=== PATIENT | female | born 1960 | race Caucasian/White ===

== ENCOUNTER 2024-09-15 09:48 | Outpatient (AMB) | payer BC, SELFPAY ==
--- NOTE | 2024-09-15 10:02 | A.OFFPC_ITS ---
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 Intake Note: patient is scheduled for BUILDING MAINTENANCE TECHNICIAN visit to establish care with pcp Autom[employer] Professional Required: No Allergies No Known Allergies Allergy (Verified 09/15/24 10:04) Medication List - Last Reconciled 09/15/24 by Jones Becker MD ashwagandha extract mg PO atorvastatin 10 mg PO DAILY biotin 1 mg PO DAILY cholecalciferol (vitamin D3) 125 mcg PO DAILY ferrous sulfate 65 mg PO DAILY folic acid 1 mg PO DAILY methotrexate sodium 15 mg PO QWEEK db-oa-mygmqhb-biotin-vit D3-FA 200-450-400 mg-mcg-unit tabs PO mankcqtl-ahykrq-lwany pepper 125 mg-6 mg- 50 mcg tabs PO Tobacco use date assessed: 09/15/24 Fall risk assessment: No Falls in past year Last assessed Fall Risk: 09/15/24 Dental Screening Dental Screen Date: 09/15/24 Did you have a dental visit in the last 12 months?: Yes Did you have a dental problem in the last 6 months where you did not have access to dental care?: No Was dental information given to patient?: Patient has dentist HPI BUILDING MAINTENANCE TECHNICIAN- PE request HPI Details New Patient? ?? Prior PCP:? Bushra Kaufman Last office visit/CPE:? 1 year Acute issue(s):? [facility]. Dru JUAREZ. ?? PMHx:? RA and OA. ? Lipid elevation, Hyperkalemia SurgHx:?Gastric Bypass, Lumber Surgery, FHx:? Mom: CAD, OR, DM. Dad: CAD, OR, Skin CA. Sister: CAD & Stent. SocHx:? Quit Cigs 20 yrs ago. EToH None. No drugs HPI Comments History of Present Illness Details Documentation assistance for Jones Becker MD, was provided by Girish Hendrix,? [employer] on 09/15/2024 at 10:45 AM EST. I, Dr. Becker, have read, observed, and verified documentation. ?? [facility] Medical History (Updated 09/15/24 @ 10:44 by Girish Hendrix) Osteoporosis Arthritis Sinusitis Surgical History (Updated 09/15/24 @ 10:22 by CURRY Abbasi) H/O gastric bypass H/O lumbar discectomy History of tonsillectomy Hx of appendectomy Family History (Updated 09/15/24 @ 10:28 by CURRY Abbasi) Mother High blood pressure High cholesterol Diabetes Cardiovascular disease Father High blood pressure High cholesterol Cardiovascular disease Skin cancer Sister High blood pressure High cholesterol Cardiovascular disease Skin cancer Social History Housing: House Patient Tobacco Use Status: Former Tobacco user e-Cigarette/Vaping Use: Never Used Second Hand Smoke Exposure: No service: No Current occupational status: employed Current occupation: paraprofessional Current occupational exposures/hazards: No Cognitive needs: No Hearing needs: No Vision needs: Yes Questionnaire PHQ-9 Over the last 2 weeks, how often have you been bothered by any of the following problems? 1. Little interest or pleasure in doing things: not at all 2. Feeling down, depressed, or hopeless: not at all 3. Trouble falling or staying asleep, or sleeping too much: several days 4. Feeling tired or having little energy: not at all 5. Poor appetite or overeating: more than half the days 6. Feeling bad about yourself - or that you are a failure or have let yourself or your family down: not at all 7. Trouble concentrating on things, such as reading the newspaper or watching television: not at all 8. Moving or speaking so slowly that other people could have noticed. Or the opposite - being so fidgety or restless that you have been moving around a lot more than usual: not at all 9. Thoughts that you would be better off or of hurting yourself in some way: not at all Total score: 3 Depression Screening Interpretation: Negative Depression Screening Done: Yes 13491 - PHQ-9 Billing: Yes Source: Developed by Drs. Nathan Duncan, Yuridia Byrd, Jose [place] Wharton and colleagues, with an educational linh from [employer]. Thrive Questionnaire Date Thrive assessed: 09/15/24 I am a: Patient What is your living situation today?: I have a steady place to live Within the past 12 months, did the food you bought not last and you didn't have the money to get more?: Never true Within the past 12 months, did you worry whether your food would run out before you got money to buy more?: Never true Do you have trouble paying for medicines?: No Do you have trouble getting transportation to medical appointments?: No Do you have trouble paying your heating and electricity bill?: No Do you have trouble taking care of your child, family member or friend?: No Do you have trouble with day-to-day activities such as bathing, preparing meals, shopping, managing finances, etc.?: No Are you currently unemployed and looking for a job?: No Are you interested in more education?: No Please select the resources that you would like help with: None Currently or been in a relationship where the following occur: No concerns reported THRIVE Score: 0 AUDIT C Alcohol Use Questionnaire (AUDIT-C) 1. How often do you have a drink containing alcohol?: Never Total Score: 0 Score Reviewed/Action Taken: Yes NICOLE-7 AMB Questionnaire NICOLE-7 Date NICOLE - 7 assessed: 09/15/24 Feeling nervous, anxious, or on edge: 1 = Several days Not being able to stop or control worryin = Not at all Worrying too much about different things: 0 = Not at all Trouble relaxin = Several days Being so restless that it is hard to sit still: 0 = Not at all Becoming easily annoyed or irritable: 1 = Several days Feeling afraid as if something awful might happen: 1 = Several days Total NICOLE-7 score (0-4 normal; 5-9 mild; 10-14 moderate; 15-21 severe): 4 Source: Developed by Drs. Nathan Duncan, Yuridia Byrd, Jose [place] Wharton and colleagues, with an educational linh from [employer]. NICOLE-7 Assessment Billing NICOLE-7 Assessment Tool: NICOLE-7 Assessment 36318 Review of Systems Const Denies chills, Denies fatigue, Denies fever(s), Denies headache(s) and Denies weakness ENT Denies dizziness and Denies headache(s) Card Denies chest pain, Denies lightheadedness, Denies dyspnea and Denies other (Palpitations) Resp Denies cough, Denies dyspnea, Denies wheezing and Denies other ( shortness of breath) Musc Denies numbness and Denies tingling Neuro Denies dizziness, Denies headache(s), Denies numbness, Denies tingling, Denies paresthesias and Denies weakness Psych Denies anxiety and Denies depression Endo Denies fatigue Aller/Immun Denies wheezing Physical exam (Primary Care) Tobacco/Smoking Status: Tobacco use Status Tobacco use date assessed 09/15/24 09/15/24 10:19 Patient Tobacco Use Status Former Tobacco user 09/15/24 10:19 e-Cigarette/Vaping Use Never Used 09/15/24 10:19 PHQ-9: PHQ-9 Score PHQ-9: Total score 3 09/15/24 10:19 Depression Screening Interpretation: Negative Currently or been in a relationship where the following occur: No concerns reported Const General: no acute distress and well developed Nutritional Appearance: well nourished Orientation/consciousness: patient oriented x3 HENMT Head: Yes normocephalic and Yes atraumatic Eyes General: appearance normal, both eyes and all related structures Pupils: Equal, round and reactive pupils present EOM: EOMs intact bilaterally Resp Effort & Inspection: normal respiratory effort Auscultation: clear to auscultation bilaterally Cardio Rate: regular rate Rhythm: regular rhythm Heart sounds: S1 normal heart sound present, S2 normal heart sound present, no gallops, no murmurs and no rubs Neuro General: patient oriented x3 and gait normal Cranial nerves: Yes Equal, round and reactive pupils present Psych Affect: normal affect Coding Level of Care Code New Pt Level 4 (64334) Diagnoses Hyperlipidemia E78.5 Rheumatoid arthritis M06.9 Osteoarthritis M19.90 Obesity E66.9 Family history of coronary artery disease Z82.49 Laboratory exam ordered as part of routine general medical examination Z00.00 Additional Codes NICOLE-7 Assessment Billing - NICOLE-7 Assessment Tool: NICOLE-7 Assessment 06013 ([id number]) PHQ-9 - 19825 - PHQ-9 Billing: Yes ([id number]) Assessment & Plan Assessment & Plan (1) Hyperlipidemia: Code(s): E78.5 - Hyperlipidemia, unspecified Category: Medical Plan: Patient?was?put?on?atorvastatin?but?has?not?been?taking?this?and?questions?the?n eed?for She?does?have?a?very?strong?family?history?of?coronary?artery?disease?in?mom,?da d?and?sister Will?recheck?lipids?and?discuss?with?patient?in?light?of?this (2) Rheumatoid arthritis: Code(s): M06.9 - Rheumatoid arthritis, unspecified Category: Medical Plan: Rheumatoid?arthritis?and?some?osteoarthritis Followed?by?rheumatology?in?[place]?at?[facility]?on?methotrexate?and?folic?acid Continue?current?medication?regimen Will?request?Rheumatology?note (3) Osteoarthritis: Code(s): M19.90 - Unspecified osteoarthritis, unspecified site Category: Medical Plan: As above (4) Obesity: Code(s): E66.9 - Obesity, unspecified Category: Medical Plan: History?of?gastric?bypass Patient?would?like?to?try?a?GLP?1?medications?such?as?Mounjaro Will?send?script. Patient?is?aware?of risks/benefits?as?her??is?on?this We?discussed?that she?may?need?to?discuss?payment?with?her?insurance?company (5) Family history of coronary artery disease: Code(s): Z82.49 - Family history of ischemic heart disease and other diseases of the circulatory system Category: Medical Plan: Checking lipids. EKG at next visit as baseline (6) Laboratory exam ordered as part of routine general medical examination: Code(s): Z00.00 - Encounter for general adult medical examination without abnormal findings Category: Medical Plan: Check?labs Orders: Orders Complete Blood Count Auto Diff Today Z00.00 - Encounter for general adult medical examination without abnormal findings Lipid Panel Today Z00.00 - Encounter for general adult medical examination without abnormal findings Triiodothyronine T3 Total Today E03.9 - Hypothyroidism, unspecified Microalbumin, Random (w Creat) Today I10 - Essential (primary) hypertension AMB EKG-In Office Today E78.5 - Hyperlipidemia, unspecified, Z82.49 - Family history of ischemic heart disease and other diseases of the circulatory system Comprehensive Anza. Panel Fast Today Z00.00 - Encounter for general adult medical examination without abnormal findings TSH reflex Free T4 Today Z00.00 - Encounter for general adult medical examination without abnormal findings Vitamin D 25-OH Total Today E55.9 - Vitamin D deficiency, unspecified Vitamin B12 and Folate Today E53.8 - Deficiency of other specified B group vitamins
[2024-09-15 10:29] VITALS: BP 110/78; PULSE 68; RESP 14; TEMP 36.6; O2SAT 94; BMI 32.7
--- OUTSIDE RECORDS SUMMARY | 2024-09-15 11:07 | XMS_ITS | Clinical Summary ---
Author Organization [email or web address] Address [address] [place] [address] Care Team Providers Care Musculoskeletal Physiotherapist Name Role Phone Bushra Quinn Primary Care Provider [phone] Immunizations Immunization Administration Dates Next Due INFLUENZA INJECTABLE QUADRIV ALANT CCIIV4 MDCK Multi-dose vial 12/19/2022 Influenza injectable quadriv alent preservative free 12/18/2021 Influenza, IIV3, injectable 12/23/2023,0 12/20/2020,12/29/2019,12/24,11/10/2016,02/20/2015 Influenza, Injectable, MDCK, w/preservative 12/23/2023 MMR 02/16/2012 Moderna Covid-19 Vaccine 12+ 01/06/2024 Pfizer Covid-19 Vaccine 12+ 12/16/2022 Pneumococcal Polysaccharide PPSV23 01/12/2020 TD (adult), 2 Lf tetanus tox oid, preservative free, adsorbed 03/23/2009 Tdap 07/15/2012 Social History Tobacco Use Types Packs/Day Years Used Date Smoking Tobacco: Never Assessed Comments Unknown Sex and Gender Information Value Date Recorded Sex Assigned at Female 01/21/2022 5:56 PM EDT Legal Sex Female 8:36 PM EDT Gender Identity Female 12/19/2022 9:52 AM EDT Sexual Orientation Choose not to disclose 2022 9:52 AM EDT Plan of Treatment Health Maintenance Due Date Last Done Comments CT Colonography 1959 Colonoscopy 1959 Colorectal Cancer Screening 1959 Depression Screening 1959 FIT DNA/Cologuard 1959 FIT 1959 FOBT 1959 SDOH Screening 1959 Sigmoidoscopy 1959 Alcohol/Substance Use Screening 1971 Tobacco Screening 1971 Hepatitis C Screening 05/23/1977 Pap Smear 05/23/1980 Cervical Cancer Screening 05/23/1989 HPV/Cotest 05/23/1989 Mammogram 1999 Zoster Vaccines (1 of 2) 05/23/2009 Pneumococcal Vaccine: 50+ Years (2 of 2 - PCV) 01/11/2021 01/12/2020 DTaP/Tdap/Td Vaccines (2 - Td or Tdap) 07/15/2022 07/15/2012, 03/23/2009 COVID-19 Vaccine ( season) 2024 01/06/2024, 12/16/2022, 01/09/2021, Additional history exists RSV Patients and Patients Aged 60 years or older (1 - 1-dose 75+ series) 05/23/2034 Influenza Vaccine Completed 12/23/2023, , 12/19/2022, Additional history exists HIB Vaccines Aged Out No longer eligi ble based on patient's age to complete this topic HPV Vaccines Aged Out No longer eligi ble based on patient's age to complete this topic Hepatitis A Vaccines Aged Out No long er eligible based on patient's age to complete this topic Hepatitis B Vaccines Aged Out No long er eligible based on patient's age to complete this topic IPV Vaccines Aged Out No longer eligi ble based on patient's age to complete this topic Meningococcal B Vaccine Aged Out No l onger eligible based on patient's age to complete this topic Meningococcal Vaccine Aged Out No luke pranav eligible based on patient's age to complete this topic RSV under 20 months Aged Out No longe r eligible based on patient's age to complete this topic Rotavirus Vaccines Aged Out No longer eligible based on patient's age to complete this topic Insurance [facility] HMO Care Teams Musculoskeletal Physiotherapist Relationship Specialty Start Date End Date Bushra Quinn [address] [place] [address] PCP - General 12/24/23
== END 2024-09-15 10:52 | disposition home or self-care (01) ==
LOC: HO.HMCFM 09:49
PROVIDERS: PCP Family Medicine; Visit Provider Family Medicine
DX: E78.5 Hyperlipidemia, unspecified (principal); M06.9 Rheumatoid arthritis, unspecified; E66.9 Obesity, unspecified; Z68.32 Body mass index [BMI] 32.0-32.9, adult; M19.90 Unspecified osteoarthritis, unspecified site; Z82.49 Family history of ischemic heart disease and other diseases of the circulatory system

== ENCOUNTER → 2024-09-15 09:48 | Outpatient (BNVA) | payer BC, SELFPAY | PROVIDERS: PCP Family Medicine; Visit Provider Family Medicine | DX: Z00.00 Encounter for general adult medical examination without abnormal findings (principal); E78.5 Hyperlipidemia, unspecified; M06.9 Rheumatoid arthritis, unspecified; M19.90 Unspecified osteoarthritis, unspecified site; E66.9 Obesity, unspecified; Z82.49 Family history of ischemic heart disease and other diseases of the circulatory system | CPT/HCPCS: 96127 ==

== ENCOUNTER 2024-09-22 08:40 | Outpatient (REF) | payer BC, SELFPAY ==
--- OUTSIDE RECORDS SUMMARY | 2024-09-22 08:47 | XMS_ITS | Clinical Summary ---
Author Organization [employer] Address [address] [place] [address] Care Team Providers Care Case Preparer And Liner Name Role Phone Bushra Quinn Primary Care Provider [phone] Immunizations Immunization Administration Dates Next Due INFLUENZA [...] patient's age to complete this topic Insurance [employer] HMO Care Teams Case Preparer And Liner Relationship Specialty Start Date End Date Bushra Quinn [address] [place] [address] PCP - General 12/24/23
[2024-09-22 11:02] LABS: MANUAL DIFF FLAG NO
[2024-09-22 11:25] LABS: Hematocrit 37.0 % (37.0-47.0); Hemoglobin 11.9 g/dl (12.0-16.0); Imm Gran Abs Auto 0.01 X10*3/uL (0.00-0.03); Imm Gran Pct Auto 0.2 % (0.0-0.4); Lymphocytes Absolute Auto 1.2 X10*3/uL (1.2-4.9); Mean Corpuscular HGB Conc 32.2 g/dl (31.0-35.0); Mean Corpuscular Hemoglobin 30.1 pg (27.0-33.0); Mean Corpuscular Volume 93.4 fL (80.0-98.0); NRBC Abs Auto 0.000 X10*3/uL (0.0-0.012); NRBC Pct Auto 0.0 /100WBC (0.0-0.2); Platelet Count 277 X10*3/uL (160-400); Red Blood Count 3.96 X10*6/uL (4.20-5.50); White Blood Count 4.2 X10*3/uL (4.8-10.8)
[2024-09-22 11:53] LABS: Alanine Aminotransferase 21 U/L (0-31); Albumin Level 4.2 g/dL (3.5-5.0); Alkaline Phosphatase 35 U/L (39-117); Anion Gap 9 (12-20); Aspartate Amino Transferase 21 U/L (5-31); Blood Urea Nitrogen 15 mg/dL (9-16); Calcium 8.7 mg/dL (8.4-10.2); Carbon Dioxide 29 mmol/L (22-29); Chloride 108 mmol/L (96-108); Cholesterol 188 mg/dL (<200); Estimated Glomerular Filt Rate > 60; HDL Cholesterol 52 mg/dL (>40); Potassium 4.3 mmol/L (3.3-5.1); Sodium 142 mmol/L (135-145); Total Protein 6.1 g/dL (6.5-8.0); Triglycerides 84 mg/dL (<150)
[2024-09-22 11:59] LABS: Folate 10.6 ng/mL (> or = 4.0); Vitamin B12 964 pg/mL (200-900)
[2024-09-22 16:02] LABS: Microalbum/Creatinine Ratio Ur 4.4 ug/mg cr (<30)
== END 2024-09-22 08:41 | disposition home or self-care (01) ==
LOC: HO.WFDLDS 08:40
PROVIDERS: Visit Provider Family Medicine
DX: Z00.00 Encounter for general adult medical examination without abnormal findings (principal); E55.9 Vitamin D deficiency, unspecified; E53.8 Deficiency of other specified B group vitamins; E03.9 Hypothyroidism, unspecified; I10 Essential (primary) hypertension
CPT/HCPCS: 36415; 80053; 80061; 82043; 82306; 82570; 82607; 82746; 84443; 84480; 85025

== ENCOUNTER 2024-12-28 11:14 | Outpatient (AMB) | payer BC, SELFPAY ==
--- NOTE | 2024-12-28 11:16 | MHC.PC.OV ---
Vital Signs 12/28/24 11:22 Height 5 ft 1.42 in Weight 180 lb BMI 33.5 BP 126/63 Blood Pressure Location Rt brachial Position Sitting Respiration 16 Pulse 69 Pulse Source Pulse Oximeter Temp 97.7 F Temp Source Oral Pulse Oximetry (%) 98 Oxygen Delivery Method Room Air Intake Visit Reasons: CPE with f/u labs and health maint 30 mins Intake Note: patient here for CPE with f/u labs and health maint. Facility Service Associate Required: No Is last menstrual period known: No Post menopausal: No Patient : No Allergies No Known Allergies Allergy (Verified 12/28/24 11:20) Medication List - Last Reconciled 12/28/24 by Jones Becker MD ashwagandha extract mg PO atorvastatin 20 mg PO DAILY 90 days biotin 1 mg PO DAILY cholecalciferol (vitamin D3) 125 mcg PO DAILY ferrous sulfate 65 mg PO DAILY folic acid 1 mg PO DAILY methotrexate sodium 15 mg PO QWEEK is-ed-uvnpuls-biotin-vit D3-FA 200-450-400 mg-mcg-unit tabs PO nllkpmfr-ahdapg-awqts pepper 125 mg-6 mg- 50 mcg tabs PO Tobacco use date assessed: 12/28/24 Fall risk assessment: No Falls in past year Last assessed Fall Risk: 12/28/24 Dental Screening Dental Screen Date: 12/28/24 Did you have a dental visit in the last 12 months?: Yes Did you have a dental problem in the last 6 months where you did not have access to dental care?: No Was dental information given to patient?: Patient has dentist HPI CPE with f/u labs and health maint 30 mins HPI Details 64 y/o female presents for a CPE with f/u labs and health maintenance. Hx of osteoporosis. Labs drawn 09/22/24. Reviewed labs with pt. Triglycerides 84. TC 188. LDL 120. HDL 52. Pt notes she is taking artovastatin 10mg. Mild anemia. [facility] Medical History (Updated 12/28/24 @ 12:18 by Girish Hendrix) Osteoporosis Arthritis Sinusitis Surgical History H/O gastric bypass H/O lumbar discectomy History of tonsillectomy Hx of appendectomy Family History Mother High blood pressure High cholesterol Diabetes Cardiovascular disease Father High blood pressure High cholesterol Cardiovascular disease Skin cancer Sister High blood pressure High cholesterol Cardiovascular disease Skin cancer Social History Housing: House Patient Tobacco Use Status: Former Tobacco user e-Cigarette/Vaping Use: Never Used Second Hand Smoke Exposure: No service: No Current occupational status: employed Current occupation: paraprofessional Current occupational exposures/hazards: No Cognitive needs: No Hearing needs: No Vision needs: Yes Questionnaire PHQ-9 Over the last 2 weeks, how often have you been bothered by any of the following problems? 1. Little interest or pleasure in doing things: not at all 2. Feeling down, depressed, or hopeless: not at all 3. Trouble falling or staying asleep, or sleeping too much: several days 4. Feeling tired or having little energy: several days 5. Poor appetite or overeating: more than half the days 6. Feeling bad about yourself - or that you are a failure or have let yourself or your family down: several days 7. Trouble concentrating on things, such as reading the newspaper or watching television: not at all 8. Moving or speaking so slowly that other people could have noticed. Or the opposite - being so fidgety or restless that you have been moving around a lot more than usual: not at all 9. Thoughts that you would be better off or of hurting yourself in some way: not at all Total score: 5 Depression Screening Interpretation: Positive Depression Screening Done: Yes 81814 - PHQ-9 Billing: Yes Source: Developed by Drs. Nathan Duncan, Yuridia Byrd, Jose Carlos Wharton and colleagues, with an educational linh from [employer]. Thrive Questionnaire Date Thrive assessed: 12/28/24 I am a: Patient What is your living situation today?: I have a steady place to live Within the past 12 months, did the food you bought not last and you didn't have the money to get more?: Never true Within the past 12 months, did you worry whether your food would run out before you got money to buy more?: Never true Do you have trouble paying for medicines?: No Do you have trouble getting transportation to medical appointments?: No Do you have trouble paying your heating and electricity bill?: No Do you have trouble taking care of your child, family member or friend?: No Do you have trouble with day-to-day activities such as bathing, preparing meals, shopping, managing finances, etc.?: No Are you currently unemployed and looking for a job?: No Are you interested in more education?: No Please select the resources that you would like help with: None Currently or been in a relationship where the following occur: I choose not to answer THRIVE Score: 0 AUDIT C Alcohol Use Questionnaire (AUDIT-C) 1. How often do you have a drink containing alcohol?: Never 3. How often do you have six or more drinks on one occasion?: Never Total Score: 0 NICOLE-7 AMB Questionnaire NICOLE-7 Date NICOLE - 7 assessed: 12/28/24 Feeling nervous, anxious, or on edge: 2 = More than half the days Not being able to stop or control worryin = Not at all Worrying too much about different things: 1 = Several days Trouble relaxin = Several days Being so restless that it is hard to sit still: 1 = Several days Becoming easily annoyed or irritable: 2 = More than half the days Feeling afraid as if something awful might happen: 0 = Not at all Total NICOLE-7 score (0-4 normal; 5-9 mild; 10-14 moderate; 15-21 severe): 7 Source: Developed by Drs. Nathan Duncan, Yuridia Byrd, Jose Carlos Wharton and colleagues, with an educational linh from [employer]. NICOLE-7 Assessment Billing NICOLE-7 Assessment Tool: NICOLE-7 Assessment 24686 Review of Systems Const Denies chills, Denies fatigue, Denies fever(s), Denies headache(s) and Denies weakness ENT Denies dizziness and Denies headache(s) Card Denies dyspnea Resp Denies cough, Denies dyspnea, Denies wheezing and Denies other (shortness of breath) Musc Denies numbness and Denies tingling Neuro Denies dizziness, Denies headache(s), Denies numbness, Denies tingling and Denies weakness Psych Denies anxiety and Denies depression Endo Denies fatigue Aller/Immun Denies wheezing Physical exam (Primary Care) Vital Signs: Last Vital Signs Temp 97.7 F 12/28/24 11:22 Pulse 69 12/28/24 11:22 Resp 16 12/28/24 11:22 BP 126/63 12/28/24 11:22 Pulse Ox 98 12/28/24 11:22 Oxygen Delivery Method Room Air 12/28/24 11:22 BMI result Body Mass Index 33.5 Tobacco/Smoking Status: Tobacco use Status Tobacco use date assessed 12/28/24 12/28/24 11:26 Patient Tobacco Use Status Former Tobacco user 12/28/24 11:17 e-Cigarette/Vaping Use Never Used 12/28/24 11:17 PHQ-9: PHQ-9 Score PHQ-9: Total score 5 12/28/24 11:54 Depression Screening Interpretation: Positive Thrive Assessment: Date of Thrive Assessment Date Thrive assessed 12/28/24 12/28/24 11:31 Currently or been in a relationship where the following occur: I choose not to answer Const General: well developed; No acute distress Nutritional Appearance: well nourished Orientation/consciousness: patient oriented x3 HENMT Head: Yes normocephalic and Yes atraumatic Eyes General: appearance normal, both eyes and all related structures Pupils: Equal, round and reactive pupils present EOM: EOMs intact bilaterally Resp Effort & Inspection: normal respiratory effort Neuro General: patient oriented x3 and gait normal Cranial nerves: Yes Equal, round and reactive pupils present Psych Affect: normal affect Coding Level of Care Code Est Pt Level 3 (44037) Est Pt Prev Care >65y(10837) Diagnoses Adult general medical exam Z00.00 Hyperlipidemia E78.5 Anemia D64.9 Osteoporosis M81.0 Screening for cervical cancer Z12.4 Breast cancer screening by mammogram Z12.31 Screening for colon cancer Z12.11 Immunization counseling Z71.85 Change in hearing H91.90 Additional Codes NICOLE-7 Assessment Billing - NICOLE-7 Assessment Tool: NICOLE-7 Assessment 81326 ([id number]) PHQ-9 - 50509 - PHQ-9 Billing: Yes ([id number]) Assessment & Plan Assessment & Plan (1) Adult general medical exam: Code(s): Z00.00 - Encounter for general adult medical examination without abnormal findings Category: Medical Plan: 64-year-old female presents for complete physical exam Encouraged healthy diet with active lifestyle and plenty of exercise (2) Hyperlipidemia: Code(s): E78.5 - Hyperlipidemia, unspecified Category: Medical Plan: LDL cholesterol is above goal of less than 100 She has a strong family history of coronary artery disease Will increase atorvastatin from 10 mg daily to 20 daily Recheck in few months HLD and Family history CAD. EKG today shows: Normal sinus rhythm, normal axis, no hypertrophy, no ST-T-wave changes. (3) Anemia: Code(s): D64.9 - Anemia, unspecified Category: Medical Plan: Mild/borderline anemia We monitor (4) Osteoporosis: Code(s): M81.0 - Age-related osteoporosis without current pathological fracture Category: Medical Plan: She is getting good sources of calcium and vitamin-D Also weight-bearing exercise Briefly discussed bisphosphonate medications. Osteoporosis is managed by her draw bench operator helper and she can discuss further him/her Requesting records (5) Screening for cervical cancer: Code(s): Z12.4 - Encounter for screening for malignant neoplasm of cervix Category: Medical Plan: Patient says he has not had a underwater hunter trapper exam or Pap smear many years Referred to underwater hunter trapper (6) Breast cancer screening by mammogram: Code(s): Z12.31 - Encounter for screening mammogram for malignant neoplasm of breast Category: Medical Plan: Patient says she had a mammogram last year and gets her mammograms every other year. Up-to-date (7) Screening for colon cancer: Code(s): Z12.11 - Encounter for screening for malignant neoplasm of colon Category: Medical Plan: Patient says she had a colonoscopy at [facility] about a year ago Requesting reports (8) Immunization counseling: Code(s): Z71.85 - Encounter for immunization safety counseling Category: Medical Plan: Getting Flu shot this week Otherwise UTD (9) Change in hearing: Code(s): H91.90 - Unspecified hearing loss, unspecified ear Category: Medical Plan: Patient notes changes in hearing which are affecting conversation Refer to audiology Orders: Orders AMB EKG-In Office Today E78.5 - Hyperlipidemia, unspecified, Z82.49 - Family history of ischemic heart disease and other diseases of the circulatory system Referrals WORKERS COMPENSATION CLAIMS ASSISTANT Referral Z12.4 - Encounter for screening for malignant neoplasm of cervix Audiology Referral H91.90 - Unspecified hearing loss, unspecified ear Medications: Changed From atorvastatin 10 mg PO DAILY 90 days 90 tabs 3RF To atorvastatin 20 mg PO DAILY 90 tabs 3RF 90 days From atorvastatin 10 mg PO DAILY To atorvastatin 10 mg PO DAILY 90 days 90 tabs 3RF
[2024-12-28 11:22] VITALS: BP 126/63; PULSE 69; RESP 16; TEMP 36.5; O2SAT 98; BMI 33.5
== END 2024-12-28 13:09 | disposition home or self-care (01) ==
LOC: HO.HMCFM 11:15
PROVIDERS: PCP Family Medicine; Visit Provider Family Medicine
DX: Z00.00 Encounter for general adult medical examination without abnormal findings (principal); E78.5 Hyperlipidemia, unspecified; D64.9 Anemia, unspecified; M81.0 Age-related osteoporosis without current pathological fracture; H91.93 Unspecified hearing loss, bilateral; Z82.49 Family history of ischemic heart disease and other diseases of the circulatory system

== ENCOUNTER → 2024-12-28 11:14 | Outpatient (BNVA) | payer BC, SELFPAY | PROVIDERS: PCP Family Medicine; Visit Provider Family Medicine | DX: Z00.00 Encounter for general adult medical examination without abnormal findings (principal); E78.5 Hyperlipidemia, unspecified; D64.9 Anemia, unspecified; M81.0 Age-related osteoporosis without current pathological fracture; H91.90 Unspecified hearing loss, unspecified ear; Z71.85 Encounter for immunization safety counseling | CPT/HCPCS: 93005; 96127 ==